=== PATIENT | male | born 1950 | race Hispanic/Latino ===

== ENCOUNTER → 2018-11-02 | Outpatient (CLI) | payer MEDICARE ==
--- NOTE | 2018-11-02 11:00 | NUR ---
MBSS COMPLETED. TRANSIENT PENETRATION WITH THIN LIQUIDS. RECOMMEND MECHANICAL SOFT, HONEY-THICK LIQUIDS: PILLS WHOLE WITH LIQUIDS. PATIENT INFORMATION: Pt IS A 67 YEAR OLD MALE REFERRED FOR AN MBSS SECONDARY TO DYSPHAGIA. Pt AAOX2 DURING THE EVALUATION. Pt COOPERATIVE AND SERVED THE PRIMARY INFORMANT FOR MEDICAL AND SOCIAL HISTORY. Pt REPORTS ODYNOPHAGIA WHEN HE EATS. PT CURRENTLY REQUESTING PILLS CRUSHED. Pt IS A PATIENT AT A LOCAL [facility]. Pt WAS ADMITTED SECONDARY TO SEPSIS AND ENCEPHALOPATHY. Pt HAS A PAST MEDICAL HISTORY SIGNIFICANT FOR DM, ESRD, TIA,SEIZURE, LEFT BELOW THE KNEE AMPUTATION. MBSS INTERPRETATION: Pt PRESENTS WITH MODERATE PHARYNGEAL DYSPHAGIA CAUSED BY DECREASED TONGUE BASE RETRACTION, DECREASED HYO-LARYNGEAL APPROXIMATION AND DECREASED PHARYNGEAL RESPONSE TIME (2-3 SECONDS), DECREASED PRESSURE GENERATION WITHIN THE PHARYNX, EVIDENCED BY POOLING IN VALLECULAE WITH RESIDUE CLEARED WITH RE-SWALLOW, RESULTING IN DEEP-TRANSIENT PENETRATION WITH THIN LIQUIDS AND MIXED TEXTURE WITH NO COUGH RESPONSE (SILENT)AND SHALLOW PENETRATION WITH NECTAR-THICK LIQUIDS (SILENT). NO ASPIRATION PRESENT AT THE TIME OF THE MBSS. TRIALS: 1. TSP PUREED: GOOD 2. TSP PUDDING: GOOD 3. TSP MIXED: DEEP TRANSIENT PENETRATION 4. CUP SIP THIN LIQUIDS: DEEP TRANSIENT PENETRATION (SILENT) 5. CUP SIP NECTAR-THICK LIQUIDS: SHALLOW PENETRATION 6. CUP SIP HONEY-THICK LIQUIDS: GOOD RECOMMENDATIONS: 1. MECHANICAL SOFT/CHOPPED, HONEY-THICK LIQUIDS; PILLS WHOLE WITH LIQUIDS. 2. COMPENSATORY STRATEGIES: *SLOW RATE *SMALL BITES ANS SIP *REMAIN UPRIGHT 30 MINUTES AFTER THE MEAL *NO STRAW *RE-SWALLOW 3. SKILLED SPEECH THERAPY IS RECOMMENDED TO TARGET AFOREMENTIONED WEAKNESSES. G-CODES SWALLOWING: [id number] Addendum: 11/03/18 at 0949 by [facility] Amended: Links added.
== END | disposition home or self-care (01) ==
LOC: RAH 10:00
PROVIDERS: ATTEND Internal Medicine
DX: R13.10 Dysphagia, unspecified (principal); R63.3 Feeding difficulties
CPT/HCPCS: 74230; 92611